=== PATIENT | female | born 1950 | race African-American/Black ===

== ENCOUNTER 2016-12-14 14:00 | Emergency (ER) | payer MEDICARE, OTHER ==
--- NOTE | 2016-12-14 14:16 | ER Document Report ---
ED Medical Screen (RME) - General Chief Complaint: Stiff Neck Stated Complaint: NECK/SHOULDER PAIN Time seen by provider: 14:15 Mode of Arrival: Ambulatory Information source: Patient Notes: 66-year-old diabetic female woke up 3 days ago with a stiff and painful neck. When she does move her neck it does not hurt but when she moves it side to side or moves her left shoulder she has pain on left side of her neck. Eyes chest pain or shortness of breath. I have greeted and performed a rapid initial assessment of this patient. A comprehensive ED assessment, evaluation of the patient, analysis of test results , and completion of the medical decision making process will be contacted by additional ED providers. TRAVEL OUTSIDE OF THE [place] IN LAST 30 DAYS: No - Related Data Allergies/Adverse Reactions: No Known Allergies Allergy (Verified 12/14/16 14:13) Past Medical History - Social History Chew tobacco use (# tins/day): No Frequency of alcohol use: None Drug Abuse: None - Past Medical History Cardiac Medical History: Reports: Hx Hypercholesterolemia, Hx Hypertension - meds 4/5 yrs Denies: Hx Coronary Artery Disease, Hx Heart Attack Pulmonary Medical History: Denies: Hx Asthma, Hx Bronchitis, Hx COPD, Hx Pneumonia Neurological Medical History: Denies: Hx Cerebrovascular Accident, Hx Seizures Endocrine Medical History: Reports: Hx Diabetes Mellitus Type 2 Renal/ Medical History: Denies: Hx Peritoneal Dialysis Musculoskeltal Medical History: Reports Hx Arthritis - knees Past Surgical History: Reports: Hx Gynecologic Surgery - ONE OVARY REMOVED, Hx Hysterectomy - OVARY REMOVED, Hx Orthopedic Surgery - knee Sx - Immunizations Hx Diphtheria, Pertussis, Tetanus Vaccination: Yes Physical Exam - Vital signs Vitals: Temp Pulse Resp BP Pulse Ox 98.3 F 79 20 135/78 H 97 12/14/16 14:07 12/14/16 14:07 12/14/16 14:07 12/14/16 14:07 12/14/16 14:07 Course - Vital Signs Vital signs: Temp Pulse Resp BP Pulse Ox 98.3 F 79 20 135/78 H 97 12/14/16 14:07 12/14/16 14:07 12/14/16 14:07 12/14/16 14:07 12/14/16 14:07
--- NOTE | 2016-12-14 14:58 | ER Document Report ---
HPI - HPI Patient complains to provider of: neck pain Pain Level: 3 Context: Patient is a 58-year-old female presents emergency Department complaining of three-day neck pain. Patient states that she woke up 3 days ago with a dull achy constant pain in her neck which radiates down a little bit into her shoulder otherwise she does not have any associated chest pain and jaw pain any decreased range of motion in her shoulder. She states that it doesn't hurt when she moves it just at rest. She has not tried anything [id number] or any home. Eyes any accident or injury. Past medical history significant for diabetes and high blood pressure she goes to Dr. Latonia Kenney - REPRODUCTIVE Reproductive: DENIES: : - DERM Skin Color: Normal Past Medical History - General Information source: Patient - Social History Smoking Status: Never Smoker Chew tobacco use (# tins/day): No Frequency of alcohol use: None Drug Abuse: None Family History: Reviewed & Not Pertinent Patient has suicidal ideation: No Patient has homicidal ideation: No - Past Medical History Cardiac Medical History: Reports: Hx Hypercholesterolemia, Hx Hypertension - meds 4/5 yrs Denies: Hx Coronary Artery Disease, Hx Heart Attack Pulmonary Medical History: Denies: Hx Asthma, Hx Bronchitis, Hx COPD, Hx Pneumonia Neurological Medical History: Denies: Hx Cerebrovascular Accident, Hx Seizures Endocrine Medical History: Reports: Hx Diabetes Mellitus Type 2 Renal/ Medical History: Denies: Hx Peritoneal Dialysis Musculoskeltal Medical History: Reports Hx Arthritis - knees Past Surgical History: Reports: Hx Gynecologic Surgery - ONE OVARY REMOVED, Hx Hysterectomy - OVARY REMOVED, Hx Orthopedic Surgery - knee Sx - Immunizations Hx Diphtheria, Pertussis, Tetanus Vaccination: Yes Vertical Provider Document - CONSTITUTIONAL Agree With Documented VS: Yes Exam Limitations: No Limitations General Appearance: WD/WN, No Apparent Distress - INFECTION CONTROL TRAVEL OUTSIDE OF THE [place] IN LAST 30 DAYS: No - HEENT HEENT: Atraumatic, Normal ENT Exam, Normocephalic - NECK Neck: Normal Inspection, Supple, Other - Full range of motion. Tense paraspinous muscles of the cervical spine.. negative: Lymphadenopathy-Left, Lymphadenopathy-Right - RESPIRATORY Respiratory: Breath Sounds Normal, No Respiratory Distress, Chest Non-Tender. negative: Rales, Rhonchi, Wheezing O2 Sat by Pulse Oximetry: 97 - CARDIOVASCULAR Cardiovascular: Regular Rate, Regular Rhythm, No Murmur Pulses: Normal: Radial - BACK Back: Normal Inspection - MUSCULOSKELETAL/EXTREMETIES Musculoskeletal/Extremeties: MAEW, FROM, Non-Tender, No Edema. negative: Eccymosis - NEURO Level of Consciousness: Awake, Alert, Appropriate Motor/Sensory: No Motor Deficit, No Sensory Deficit Course - Re-evaluation Re-evalutation: 12/14/16 15:00 H and is a 58-year-old female who is hemodynamically stable, no acute distress. Evidence of musculoskeletal strain. We'll discharge home with outpatient instructions and can follow-up with PCP as needed - Vital Signs Vital signs: Temp Pulse Resp BP Pulse Ox 98.3 F 79 20 135/78 H 97 12/14/16 14:07 12/14/16 14:07 12/14/16 14:07 12/14/16 14:07 12/14/16 14:07 Discharge - Discharge Clinical Impression: Neck pain Condition: Good Disposition: HOME, SELF-CARE Instructions: Warm Packs ([facility]), Ice Packs ([facility]), Use of Ddak-Byr-Nidopay Ibuprofen ([facility]), Exercise Program for the Shoulder ([facility]) Prescriptions: Meloxicam [Mobic 15 mg Tablet] 15 mg PO DAILY #30 tablet Forms: Elevated Blood Pressure
[2016-12-14] MEDS ORDERED: IBUPROFEN 800 MG TABLET PO ONE (15:01)
[2016-12-14 15:56] VITALS: BP 132/76
== END 2016-12-14 15:54 | disposition home or self-care (01) ==
LOC: ER 14:00
DX: M54.2 Cervicalgia (principal); E78.00 Pure hypercholesterolemia, unspecified; I10 Essential (primary) hypertension; E11.9 Type 2 diabetes mellitus without complications; Z90.710 Acquired absence of both cervix and uterus
CPT/HCPCS: 99283; A9270

== ENCOUNTER 2017-06-30 06:58 | Day surgery (SDC) | payer MEDICARE ==
[2017-06-30] MEDS ORDERED: PROPOFOL INJ 200 MG/20 ML VIAL IV ONE (07:20)
[2017-06-30 09:27] VITALS: BP 118/70
--- NOTE | 2017-06-30 14:12 | Operative Report ---
Operative Report DATE OF SURGERY: 06/30/17 Operative Report: The risks, benefits and alternatives of the procedure including risks of bleeding, perforation requiring surgery are explained to the patient detail and informed consent was obtained. Patient was taken back to the endoscopy suite and placed in the left, lateral decubital position. Timeout was called. Propofol medications administered. A rectal examination was done which did not reveal any masses, tears or fissures. An Olympus videoscope was inserted into the patient's rectum. The scope was then carefully advanced all the way to the cecum. The cecum was identified by the usual anatomical landmarks including the ileocecal valve as well as the appendiceal office. Photodocumentation was obtained. Prep was good. Scope was then sequentially pulled back via the various segments of the colon including the ascending colon, hepatic flexure, transverse colon, splenic flexure, descending colon and finally to the rectosigmoid portions of the colon. Retroflexion maneuver was performed. PREOPERATIVE DIAGNOSIS: Colorectal cancer screening POSTOPERATIVE DIAGNOSIS: Colon polyp noted on the ileocecal valve that was removed via biopsy forceps. Internal hemorrhoids. Moderate sigmoid diverticulosis OPERATION: Colonoscopy with biopsy SURGEON: HEBER SERNA ANESTHESIA: LMAC TISSUE REMOVED OR ALTERED: Colon polyp removed and retrieved COMPLICATIONS: None. ESTIMATED BLOOD LOSS: None. INTRAOPERATIVE FINDINGS: As described above. PROCEDURE: Patient tolerated the procedure well. No immediate postprocedure complications are noted. Patient discharged in good condition. Discharge date 06/30/2017. Discharge diet: Regular. Discharge activity: Regular. 2-3 week follow-up to discuss findings. We will wait on pathology. 5 year surveillance colonoscopy. Patient is instructed to call the office or proceed to the emergency room should there be any further problems or questions.
== END 2017-06-30 09:21 | disposition home or self-care (01) ==
LOC: END 06:58
PROVIDERS: ATTEND Internal Medicine Gastroenterology
PROC: 0DBC8ZX Excision of Ileocecal Valve, Via Natural or Artificial Opening Endoscopic, Diagnostic (ICD-10-PCS; principal; 2017-06-30 08:30)
DX: Z12.11 Encounter for screening for malignant neoplasm of colon (principal); K57.30 Diverticulosis of large intestine without perforation or abscess without bleeding; K64.8 Other hemorrhoids; E11.9 Type 2 diabetes mellitus without complications; M19.90 Unspecified osteoarthritis, unspecified site; I25.2 Old myocardial infarction; I11.0 Hypertensive heart disease with heart failure; I50.9 Heart failure, unspecified
CPT/HCPCS: 45380; 82962; 88305 ×2; J2704; 810

== ENCOUNTER → 2017-12-03 | Outpatient (CLI) | payer MEDICARE | LOC: OD 11:08 | PROVIDERS: ATTEND Nurse Practitioner Acute Care | DX: R30.0 Dysuria (principal); L29.8 Other pruritus | CPT/HCPCS: 87086 ==

== ENCOUNTER 2018-05-04 08:37 | Emergency (ER) | payer MEDICARE ==
--- NOTE | 2018-05-04 09:49 | ER Document Report ---
HPI - HPI Pain Level: 4 Notes: Patient is a 68-year-old female with a history of hypertension diabetes who presents to the ED complaining of right groin pain/proximal medial leg pain 1- 2 days. Patient states that her pain is in the soft tissue/muscle area and does not have any bony tenderness. Patient denies any injury. Patient states that the pain does not radiate and is worse with movement. Patient is able to weight-bear and ambulate, but has pain when she starts trying to flex and abduction/abduct her leg. She has not noticed any other swelling, redness, or bruising. She denies any smoking, IV drug use, previous DVT/PE, hormone use, recent surgery/trauma, prolonged immobilization. Denies any drug allergies. Denies any headache, fever, URI, sore throat, chest pain, palpitations, syncope , cough, shortness of breath, wheeze, dyspnea, abdominal pain, nausea/vomiting/ diarrhea, urinary retention, dysuria, hematuria, back pain, loss of control of bowel or bladder, numbness/tingling, saddle anesthesia, muscle paralysis/ weakness, or rash. - ROS Systems Reviewed and Negative: Yes All other systems reviewed and negative - CONSTITUTIONAL Constitutional: DENIES: Fever, Chills - REPRODUCTIVE Reproductive: DENIES: : - MUSCULOSKELETAL Musculoskeletal: REPORTS: Extremity pain Past Medical History - Social History Smoking Status: Never Smoker Chew tobacco use (# tins/day): No Frequency of alcohol use: None Drug Abuse: None Family History: Reviewed & Not Pertinent Patient has suicidal ideation: No Patient has homicidal ideation: No - Past Medical History Cardiac Medical History: Reports: Hx Coronary Artery Disease - high cholesterol , Hx Hypercholesterolemia, Hx Hypertension - meds 4/5 yrs Denies: Hx Heart Attack Pulmonary Medical History: Denies: Hx Asthma, Hx Bronchitis, Hx COPD, Hx Pneumonia Neurological Medical History: Denies: Hx Cerebrovascular Accident, Hx Seizures Endocrine Medical History: Reports: Hx Diabetes Mellitus Type 2 Renal/ Medical History: Denies: Hx Peritoneal Dialysis Musculoskeltal Medical History: Reports Hx Arthritis - knees Past Surgical History: Reports: Hx Gynecologic Surgery - ONE OVARY REMOVED, Hx Hysterectomy, Hx Orthopedic Surgery - knee Sx - Immunizations Hx Diphtheria, Pertussis, Tetanus Vaccination: Yes Hx Pneumococcal Vaccination: 11/17/16 Vertical Provider Document - CONSTITUTIONAL Agree With Documented VS: Yes Notes: PHYSICAL EXAMINATION: GENERAL: Well-appearing, well-nourished and in no acute distress. LUNGS: Breath sounds clear to auscultation bilaterally and equal. No wheezes rales or rhonchi. HEART: Regular rate and rhythm without murmurs, rubs, gallops. Musculoskeletal: Rt leg: FROM to passive/active. Strength 5+/5. N/V intact distal. No ecchymosis, swelling, deformity, erythema. No obvious hernia noted. + tenderness to the soft tissue medial proximal leg and groin area. No bony tenderness of the hip/back/leg. Pt is able to ambulate around the room w/ o any difficulties or pain in the hips/back/leg. Extremities: No cyanosis, clubbing, or edema b/l. Peripheral pulses 2+. Capillary refill less than 3 seconds. NEUROLOGICAL: Normal speech, normal gait with SPC. Normal sensory, motor exams PSYCH: Normal mood, normal affect. SKIN: Warm, Dry, normal turgor, no rashes or lesions noted. - INFECTION CONTROL TRAVEL OUTSIDE OF THE [place] IN LAST 30 DAYS: No Course - Re-evaluation Re-evalutation: 05/04/18 10:53 Patient is an afebrile, well-hydrated, 68-year-old female who presents to the ED with groin/proximal right leg pain medially, suspect inflammatory. Vitals are acceptable. PE is otherwise unremarkable for any neurovascular compromise, obvious tendon/ligament rupture, obvious fracture/dislocation, septic joint. Patient has no bony tenderness on exam. All of her tenderness is within the soft tissue medially. An ultrasound was ordered to rule out DVT and was unofficially negative. Patient is able to ambulate and weight-bear around the room. No signs of infection are noted. She has no significant tachycardia, tachypnea, or hypoxia. She is nontoxic-appearing. No other labs or imaging warranted at this time based on H&P. Toradol 30 mg given IM. Conservative measures for symptoms. Recheck with your PCM in 2-3 days. Consider consult with orthopedics. Return to the ED with any worsening/concerning symptoms otherwise as reviewed in discharge. Patient is in agreement. - Vital Signs Vital signs: Temp Pulse Resp BP Pulse Ox 99.1 F 73 18 142/70 H 95 05/04/18 08:48 05/04/18 08:48 05/04/18 08:48 05/04/18 08:48 05/04/18 08:48 Discharge - Discharge Clinical Impression: Right leg pain Condition: Stable Disposition: HOME, SELF-CARE Instructions: Leg Pain Nonspecific ([facility]) Additional Instructions: Rest, Ice, Compression, Elevation Tylenol/ibuprofen as needed Light stretches daily Strength exercises as able Moist heat and massage may help F/u with your PCP in 2-3 days for a recheck Consider consult(s) with Orthopedics/physical therapy for ongoing/worsening symptoms Return to the ED with any worsening symptoms and/or development of fever, headache, chest pain, palpitations, syncope, shortness of breath, trouble breathing, abdominal pain, n/v/d, muscle weakness/paralysis, numbness/tingling, swelling, redness, or other worsening symptoms that are concerning to you. Prescriptions: Naproxen 500 mg PO BID PRN #30 tablet PRN Reason: Forms: Elevated Blood Pressure Referrals: PATRICIA REED PA-C [Primary Care Provider] - 05/06/18 [facility] [Provider Group] - Follow up as needed
[2018-05-04] MEDS ORDERED: KETOROLAC TROMETHAMINE INJ/PF 30 MG/1 ML SDV IM ONE (10:56)
[2018-05-04 11:30] VITALS: BP 122/62
--- NOTE | 2018-05-04 11:41 | RADIOLOGY REPORT (SQ) ---
EXAM DESCRIPTION: VENOUS UNILATERAL LOWER COMPLETED DATE/TIME: 05/04/2018 11:33 am REASON FOR STUDY: rt groin pain, proximal leg pain COMPARISON: None. TECHNIQUE: Dynamic and static sheffield scale and color images acquired of the right leg venous system. S elected spectral images acquired with additional compression and augmentation maneuvers. The contrala teral common femoral vein and saphenofemoral junction were also imaged. Images stored on PACS. LIMITATIONS: None. FINDINGS: COMMON FEMORAL: Normal phasicity, compression and augmentation. No visualized echogenic ma terial on sheffield scale. No defects on color images. FEMORAL: Normal compression and augmentation. No visualized echogenic material on sheffield scale. No defe cts on color images. POPLITEAL: Normal compression, augmentation. No visualized echogenic material on sheffield scale. No defec ts on color images. CALF VESSELS: Normal compression, augmentation. No visualized echogenic material on sheffield scale. No de fects on color images. GSV and SSV: Normal compression, augmentation. No visualized echogenic material on sheffield scale. No def ects on color images. ANY DEEP VENOUS INSUFFICIENCY: Not evaluated. ANY EVIDENCE OF POPLITEAL CYST: No. OTHER: No other significant finding. CONTRALATERAL COMMON FEMORAL VEIN AND SAPHENOFEMORAL JUNCTION: Normal phasicity, compression and augmentation. No visualized echogenic material on sheffield scale. No de fects on color images. IMPRESSION: NO EVIDENCE DVT OR SVT IN THE RIGHT LEG. TECHNICAL DOCUMENTATION: JOB ID: [id number] [employer]- All Rights Reserved Reading location - IP/workstation name: [email or web address]
== END 2018-05-04 11:42 | disposition home or self-care (01) ==
LOC: ER 08:37
DX: M79.1 Myalgia (principal); R10.30 Lower abdominal pain, unspecified; I10 Essential (primary) hypertension; E11.9 Type 2 diabetes mellitus without complications; I25.10 Atherosclerotic heart disease of native coronary artery without angina pectoris
CPT/HCPCS: 99283; 96372; 93971; J1885

== ENCOUNTER 2019-05-08 08:53 | Emergency (ER) | payer MEDICARE ==
[2019-05-08] MEDS ORDERED: IBUPROFEN 600 MG TABLET PO ONE ×2 (09:19→11:18)
--- NOTE | 2019-05-08 09:21 | ER Document Report ---
ED Medical Screen (RME) - General Stated Complaint: HAND PAIN Time Seen by Provider: 05/08/19 09:14 Primary Care Provider: PATRICIA REED PA-C [Primary Care Provider] - Follow up as needed TRAVEL OUTSIDE OF THE [place] IN LAST 30 DAYS: No - HPI Notes: 05/08/19 09:20 Patient is a 69-year-old female with a history of hypertension and diabetes who presents complaining of right wrist/hand swelling and pain that began yesterday without known injury or precipitating event. Patient states that movement makes her pain worse. She has never had this before. Denies drug allergies or IV drug abuse. Denies ALCARAZ, fever, neck pain, URI, CP, SOB, Abd pain, dysuria, back pain, or rash. I have treated and performed a rapid initial assessment of this patient. A comprehensive ED assessment and evaluation of the patient, analysis of test results and completion of medical decision making process will be conducted by additional ED providers. PHYSICAL EXAMINATION: GENERAL: Well-appearing, well-nourished and in no acute distress. A&Ox4. Answers questions appropriately. Rt wrist/hand: + warmth noted with swelling to the dorsal wrist/hand. + associated tenderness. FROM to passive/active. N/V intact with 2+ pulses. - Related Data Allergies/Adverse Reactions: No Known Allergies Allergy (Verified 05/08/19 08:54) Past Medical History - Social History Chew tobacco use (# tins/day): No Frequency of alcohol use: None - Past Medical History Cardiac Medical History: Reports: Hx Coronary Artery Disease - high cholesterol, Hx Hypercholesterolemia, Hx Hypertension - meds 4/5 yrs Denies: Hx Heart Attack Pulmonary Medical History: Denies: Hx Asthma, Hx Bronchitis, Hx COPD, Hx Pneumonia Neurological Medical History: Denies: Hx Cerebrovascular Accident, Hx Seizures Endocrine Medical History: Reports: Hx Diabetes Mellitus Type 2 Renal/ Medical History: Denies: Hx Peritoneal Dialysis Musculoskeltal Medical History: Reports Hx Arthritis - knees Past Surgical History: Reports: Hx Gynecologic Surgery - ONE OVARY REMOVED, Hx Hysterectomy, Hx Orthopedic Surgery - knee Sx - Immunizations Hx Diphtheria, Pertussis, Tetanus Vaccination: Yes Physical Exam - Vital signs Vitals: Temp Pulse Resp BP Pulse Ox 98 F 80 16 172/90 H 97 05/08/19 08:59 05/08/19 08:59 05/08/19 08:59 05/08/19 08:59 05/08/19 08:59 Course - Vital Signs Vital signs: Temp Pulse Resp BP Pulse Ox 98 F 80 16 172/90 H 97 05/08/19 08:59 05/08/19 08:59 05/08/19 08:59 05/08/19 08:59 05/08/19 08:59 Doctor's Discharge - Discharge Referrals: PATRICIA REED PA-C [Primary Care Provider] - Follow up as needed
[2019-05-08 09:57] LABS: ABSOLUTE BASOPHILS # (AUTO) 0.1 10^3/uL (0.0-0.2); ABSOLUTE EOSINOPHILS # (AUTO) 0.1 10^3/uL (0.0-0.6); ABSOLUTE LYMPHOCYTES (AUTO) 1.9 10^3/uL (0.5-4.7); ABSOLUTE MONOCYTES (AUTO) 0.8 10^3/uL (0.1-1.4); ABSOLUTE NEUT (AUTO) 6.9 10^3/uL (1.7-8.2); BASOPHILS % (AUTO) 0.5 % (0-2); EOSINOPHILS % (AUTO) 1.1 % (0-6); HEMATOCRIT 38.2 % (36.0-47.0); HEMOGLOBIN 12.5 g/dL (12.0-15.5); LYMPHOCYTES % (AUTO) 19.4 % (13-45); MEAN CORPUSCULAR HGB CONC 32.8 g/dL (32.0-36.0); MEAN CORPUSCULAR VOLUME 92 fl (80-97); MONOCYTES % (AUTO) 8.3 % (3-13); PLATELET COUNT 270 10^3/uL (150-450); RED BLOOD COUNT 4.18 10^6/uL (3.72-5.28); RED CELL DISTRIBUTION WIDTH 13.8 % (11.5-14.0); SEGMENTED NEUTROPHILS % (AUTO) 70.7 % (42-78); TOTAL CELLS COUNTED % (AUTO) 100 %; WHITE BLOOD COUNT 9.7 10^3/uL (4.0-10.5)
--- NOTE | 2019-05-08 10:16 | RADIOLOGY REPORT (SQ) ---
EXAM DESCRIPTION: WRIST RIGHT 3 VIEWS COMPLETED DATE/TIME: 05/08/2019 9:55 am REASON FOR STUDY: Rt wrist/hand swelling COMPARISON: None. NUMBER OF VIEWS: Three views. TECHNIQUE: AP, lateral, and oblique radiographic images acquired of the right wrist. LIMITATIONS: None. FINDINGS: MINERALIZATION: Normal. BONES: No acute fracture or dislocation. No worrisome bone lesions. Normal alignment. Degenerative ch anges of the 1st metacarpal carpal joint. JOINTS: No erosions. No mihir-articular osteopenia. No chondrocalcinosis. SOFT TISSUES: No swelling. No calcifications. OTHER: No other significant finding. IMPRESSION: No acute fracture. Degenerative changes. TECHNICAL DOCUMENTATION: JOB ID: [id number] [employer]- All Rights Reserved Reading location - IP/workstation name: [email or web address]
[2019-05-08 10:20] LABS: ANION GAP 10 (5-19); BLOOD UREA NITROGEN 9 mg/dL (7-20); CALCIUM 9.9 mg/dL (8.4-10.2); CARBON DIOXIDE 33 mmol/L (22-30); CHLORIDE 98 mmol/L (98-107); GLUCOSE 130 mg/dL (75-110); POTASSIUM 3.6 mmol/L (3.6-5.0); SODIUM 140.5 mmol/L (137-145)
--- NOTE | 2019-05-08 10:54 | ER Document Report ---
ED General - General Chief Complaint: Hand Pain Stated Complaint: HAND PAIN Time Seen by Provider: 05/08/19 09:14 Primary Care Provider: PATRICIA REED PA-C [Primary Care Provider] - Follow up as needed Notes: 69-year-old female with a history of hypertension and diabetes who presents complaining of right wrist/hand swelling and pain that began yesterday without known injury or precipitating event. Patient states that movement makes her pain worse. She has never had this before. Denies drug allergies or IV drug abuse. Denies ALCARAZ, fever, neck pain, URI, CP, SOB, Abd pain, dysuria, back pain, or rash. Patient states that she noticed yesterday that she holds her hand in the same place on her steering well and the air conditioning has been blasting on it consistently every time she drives. She does have a history of significant arthritis. TRAVEL OUTSIDE OF THE [place] IN LAST 30 DAYS: No - Related Data Allergies/Adverse Reactions: No Known Allergies Allergy (Verified 05/08/19 08:54) Past Medical History - Social History Smoking Status: Unknown if Ever Smoked Chew tobacco use (# tins/day): No Frequency of alcohol use: None Family History: Reviewed & Not Pertinent Patient has suicidal ideation: No Patient has homicidal ideation: No - Past Medical History Cardiac Medical History: Reports: Hx Coronary Artery Disease - high cholesterol, Hx Hypercholesterolemia, Hx Hypertension - meds 4/5 yrs Denies: Hx Heart Attack Pulmonary Medical History: Denies: Hx Asthma, Hx Bronchitis, Hx COPD, Hx Pneumonia Neurological Medical History: Denies: Hx Cerebrovascular Accident, Hx Seizures Endocrine Medical History: Reports: Hx Diabetes Mellitus Type 2 Renal/ Medical History: Denies: Hx Peritoneal Dialysis Musculoskeletal Medical History: Reports Hx Arthritis - knees Past Surgical History: Reports: Hx Gynecologic Surgery - ONE OVARY REMOVED, Hx Hysterectomy, Hx Orthopedic Surgery - knee Sx - Immunizations Hx Diphtheria, Pertussis, Tetanus Vaccination: Yes Hx Pneumococcal Vaccination: 11/17/16 Review of Systems - Review of Systems Constitutional: See HPI EENT: No symptoms reported Cardiovascular: See HPI Respiratory: See HPI Gastrointestinal: No symptoms reported Genitourinary: See HPI Female Genitourinary: No symptoms reported Musculoskeletal: No symptoms reported Skin: No symptoms reported Hematologic/Lymphatic: No symptoms reported Neurological/Psychological: See HPI Physical Exam - Vital signs Vitals: Temp Pulse Resp BP Pulse Ox 98 F 80 16 172/90 H 97 05/08/19 08:59 05/08/19 08:59 05/08/19 08:59 05/08/19 08:59 05/08/19 08:59 - Notes Notes: PHYSICAL EXAMINATION: Reviewed vital signs and charting by RN GENERAL: Alert, interacts well. No acute distress. HEAD: Normocephalic, atraumatic. EYES: Pupils equal and round. Extraocular movements intact. ENT: Oral mucosa moist, tongue midline. NECK: Full range of motion. Trachea midline. LUNGS: Clear to auscultation bilaterally, no wheezes, rales, or rhonchi. No respiratory distress. HEART: Regular rate and rhythm. No murmur ABDOMEN: soft, non-tender. No distention. Bowel sounds present EXTREMITIES: Moves all 4 extremities spontaneously. Mild edema of the right dorsal aspect of her wrist with tenderness to palpation, able to give me a thumbs up, okay sign, perform opposition thumb to pinky, scrap stripper hand strength 4/5 right hand, 5/5 left hand. Normal distal neurovascular exam. PSYCH: Normal affect, normal mood. SKIN: Warm, dry, normal turgor. No rashes or lesions noted. Course - Re-evaluation Re-evalutation: 05/08/19 10:54 Generally well-appearing. Venous Doppler ordered. Pending. 05/08/19 11:12 Lab work all within normal limits. Venous Doppler of right upper extremity was negative per central office technician. At this time I have very low suspicion for PE, aortic abdominal aneurysm, or a DVT. Patient is stable for discharge. - Vital Signs Vital signs: Temp Pulse Resp BP Pulse Ox 98 F 80 16 172/90 H 97 05/08/19 08:59 05/08/19 08:59 05/08/19 08:59 05/08/19 08:59 05/08/19 08:59 - Laboratory Result Diagrams: 05/08/19 09:36 05/08/19 09:36 Laboratory results interpreted by me: 05/08/19 09:36 Carbon Dioxide 33 H Glucose 130 H Discharge - Discharge Clinical Impression: Swelling of right hand, Right hand pain Condition: Good Disposition: HOME, SELF-CARE Additional Instructions: You were seen in the emergency department this morning for right hand swelling and pain. Your work-up was very reassuring. Your lab work was normal and the ultrasound did not show a blood clot in your arm. It is most likely due to arthritic changes and like we discussed, could be from the air conditioning constantly blowing on your hand. We have provided you with a splint that you can wear to help with the symptoms. Please take Motrin 600 mg every 6 hours with food or milk for the next 3 to 5 days to help with the inflammation. He can also take Tylenol 1000 mg every 6 hours for pain. Please keep your wrist above the level of your heart while you are resting to help with the inflammation. Please return to the emergency department if you develop fever, your entire arm swells up, you get severe pain with limited movement in your right arm, he develop acute shortness of breath or chest pain. Referrals: PATRICIA REED PA-C [Primary Care Provider] - Follow up as needed
[2019-05-08] MEDS ORDERED: ACETAMINOPHEN 325 MG TABLET PO ONE (11:18)
[2019-05-08 11:30] VITALS: BP 122/73
--- NOTE | 2019-05-08 14:07 | XCELERA REPORT ---
[address] [address] Upper Extremity Venous Evaluation Name: PASCALE MALONE Age: 69 yrs Gender: Female : 1950 Patient Status: Emergency Patient Location: ER Study Date: 05/08/2019 10:26 AM Procedure: Unilateral duplex scan of the right upper extremity veins was performed, including responses to compression and other maneuvers. Reason For Study: Rt wrist/hand swelling, no injury Ordering Physician: BOZENA CABRAL Performed By: Maurice Abraham Right Side Venous Evaluation Normal vessel filling wall to wall, compression and augmentation as well as Colour flow down to the forearm veins. Interpretation Summary Normal compression, patency, spontaneous and phasic flow of the right upper extremity veins. : BOZENA CABRAL > Amado Garzon
== END 2019-05-08 11:34 | disposition home or self-care (01) ==
LOC: ER 08:53
DX: M79.641 Pain in right hand (principal); R22.31 Localized swelling, mass and lump, right upper limb; I25.10 Atherosclerotic heart disease of native coronary artery without angina pectoris; E78.00 Pure hypercholesterolemia, unspecified; I10 Essential (primary) hypertension; E11.9 Type 2 diabetes mellitus without complications; Z90.710 Acquired absence of both cervix and uterus
CPT/HCPCS: 99284; 36415; 85025; 80048; 93971 ×2; 73110; A9270 ×2

== ENCOUNTER → 2019-07-30 | Outpatient (CLI) | payer MEDICARE, OTHER ==
--- NOTE | 2019-07-30 13:18 | RADIOLOGY REPORT (SQ) ---
EXAM DESCRIPTION: U/S NON-OB PELVIS TV W/O DOP COMPLETED DATE/TIME: 07/30/2019 12:02 pm REASON FOR STUDY: LOWER ABDOMINAL PAIN,UNSPECIFIED R10.30 LOWER ABDOMINAL PAIN, UNSPECIFIED COMPARISON: None. TECHNIQUE: Dynamic and static grayscale images acquired of the pelvis via transvaginal approach and recorded on PACS. Additional selected color Doppler and spectral images recorded. LIMITATIONS: None. FINDINGS: UTERUS: Contour normal. No mass. ENDOMETRIAL STRIPE: Thickened. There is a 1.7 cm polyp within the endometrium. CERVIX: 1.6 cm. No nabothian cysts. RIGHT OVARY AND DOPPLER: Ovary not seen. LEFT OVARY AND DOPPLER: Ovary not seen. FREE FLUID: None noted. OTHER: No other significant finding. MEASUREMENTS: UTERUS: 7.3 x 5.4 x 4.2 cm. ENDOMETRIAL STRIPE: 1.4 cm. RIGHT OVARY: Ovary not seen. LEFT OVARY: Ovary not seen IMPRESSION: Thickened endometrium with an endometrial polyp. TECHNICAL DOCUMENTATION: JOB ID: [id number] [employer]- All Rights Reserved Reading location - IP/workstation name: [email or web address]
== END ==
LOC: RAD 11:04
PROVIDERS: ATTEND Nurse Practitioner Family
DX: N84.0 Polyp of corpus uteri (principal); R10.30 Lower abdominal pain, unspecified
CPT/HCPCS: 76830